=== PATIENT | male | born 1990 | race Caucasian/White ===

== ENCOUNTER 2018-06-22 19:45 | Emergency (ER) | payer SELFPAY ==
[~2018-06-22] VITALS: Ht 165.1 cm; Wt 84.1 kg
[2018-06-22] MEDS ORDERED: BACITRACIN 0.9 GM PACKET OINTMENT TP ONE (20:15)
[2018-06-22] MEDS ORDERED: LIDOCAINE/PF 1% 5 ML VIAL INJ ONE (20:15)
[2018-06-22 20:56] VITALS: BP 147/89
== END 2018-06-22 21:07 | disposition home or self-care (01) ==
LOC: EMS 19:48
DX: S01.21XA Laceration without foreign body of nose, initial encounter (principal); R03.0 Elevated blood-pressure reading, without diagnosis of hypertension; W01.190A Fall on same level from slipping, tripping and stumbling with subsequent striking against furniture, initial encounter; Y93.89 Activity, other specified; Y92.89 Other specified places as the place of occurrence of the external cause; Y99.8 Other external cause status
CPT/HCPCS: 12011; 99283; J3490

== ENCOUNTER 2018-06-24 10:09 | Emergency (ER) | payer SELFPAY ==
[~2018-06-24] VITALS: Ht 165.1 cm; Wt 84.1 kg
[2018-06-24 11:37] VITALS: BP 119/71
== END 2018-06-24 11:38 | disposition home or self-care (01) ==
LOC: EMS 10:10
DX: S01.21XD Laceration without foreign body of nose, subsequent encounter (principal); X58.XXXD Exposure to other specified factors, subsequent encounter

== ENCOUNTER 2018-06-29 17:25 | Emergency (ER) | payer OTHER ==
[~2018-06-29] VITALS: Ht 170.2 cm; Wt 84.1 kg
[2018-06-29 18:40] VITALS: BP 144/89
== END 2018-06-29 18:41 | disposition home or self-care (01) ==
LOC: EMS 17:25
DX: S01.21XD Laceration without foreign body of nose, subsequent encounter (principal); R03.0 Elevated blood-pressure reading, without diagnosis of hypertension; Z48.02 Encounter for removal of sutures; X58.XXXD Exposure to other specified factors, subsequent encounter

== ENCOUNTER 2018-10-28 19:39 | Emergency (ER) | payer SELFPAY ==
[~2018-10-28] VITALS: Ht 165.1 cm; Wt 88.6 kg
[2018-10-28] MEDS ORDERED: LIDOCAINE 1%/EPI 1:200,000/PF 10 ML VIAL INJ ONE (22:00)
[2018-10-28] MEDS ORDERED: SODIUM CHLORIDE 0.9% 1,000 ML IV ONE (22:15)
[2018-10-28] MEDS ORDERED: HYDROCODONE/ACETAMINOPHEN 5-325 MG TABLET PO ONE (22:15)
[2018-10-28] MEDS ORDERED: BACITRACIN 0.9 GM PACKET OINTMENT TP ONE (23:00)
[2018-10-28 23:42] VITALS: BP 155/98
== END 2018-10-29 00:16 | disposition home or self-care (01) ==
LOC: EMS 19:41
DX: S61.412A Laceration without foreign body of left hand, initial encounter (principal); S41.112A Laceration without foreign body of left upper arm, initial encounter; S51.011A Laceration without foreign body of right elbow, initial encounter; W25.XXXA Contact with sharp glass, initial encounter; Y93.89 Activity, other specified; Y92.89 Other specified places as the place of occurrence of the external cause; Y99.8 Other external cause status
CPT/HCPCS: 12001; 73080; 73130; 93005; 99285; J3490; J7030; 12002

== ENCOUNTER 2018-11-03 21:08 | Emergency (ER) | payer SELFPAY ==
[~2018-11-03] VITALS: Ht 165.1 cm; Wt 86.4 kg
[2018-11-03 21:51] VITALS: BP 157/94
== END 2018-11-03 22:33 | disposition home or self-care (01) ==
LOC: EMS 21:08
DX: S51.012D Laceration without foreign body of left elbow, subsequent encounter (principal); M75.22 Bicipital tendinitis, left shoulder; Z48.02 Encounter for removal of sutures; W25.XXXD Contact with sharp glass, subsequent encounter

== ENCOUNTER 2018-11-08 07:57 | Emergency (ER) | payer SELFPAY ==
[~2018-11-08] VITALS: Ht 165.1 cm; Wt 84.1 kg
[2018-11-08 10:01] VITALS: BP 127/72
== END 2018-11-08 10:04 | disposition home or self-care (01) ==
LOC: EMS 07:58
DX: Z02.79 Encounter for issue of other medical certificate (principal); S50.02XD Contusion of left elbow, subsequent encounter; W22.8XXD Striking against or struck by other objects, subsequent encounter